=== PATIENT | female | born 1970 | race Caucasian/White ===

== ENCOUNTER 2019-05-10 12:02 | Emergency (ER) | payer OTHER, SELFPAY ==
[2019-05-10 12:04] VITALS: BP 152/86; PULSE 96; RESP 15; TEMP 36.2; O2SAT 100; BMI 20.4
--- NOTE | 2019-05-10 12:29 | EKG12_ITS ---
Test Reason : SOB Blood Pressure : / mmHG Vent. Rate : 077 BPM Atrial Rate : 077 BPM P-R Int : 158 ms QRS Dur : 084 ms QT Int : 400 ms P-R-T Axes : 067 052 064 degrees QTc Int : 452 ms Normal sinus rhythm Normal ECG Confirmed by ZOË SIMON, AIDE ([id number]), state editor RENNY DOUGLAS ([id number]) on 05/12/2019 12:31:53 PM Referred By: NENA Confirmed By:LAUREN CAMP MD
--- NOTE | 2019-05-10 12:29 | RAD_ITS ---
STUDY: X-RAY CHEST REASON FOR EXAM: Female, 48 years old. One-month history of shortness of breath and weakness. TECHNIQUE: Single AP portable view of the chest. COMPARISON: None. FINDINGS: The lungs are clear and expanded. There is no demonstrated pleural abnormality. Normal size heart. Normal mediastinum and tracy. Normal visualized pulmonary arteries. Normal visualized aortic arch and descending thoracic aorta. There is a levoscoliosis of the thoracic spine. Mild degree of degenerative changes. Normal visualized ribs, clavicles, and shoulders. There is no demonstrated abnormality of the visualized soft tissue structures of the upper abdomen. RAD/Chest 1 View (Portable) IMPRESSION: No acute abnormality is seen. Electronically Signed: Spike Ponce, at 12:54 EST , Service support ,
--- NOTE | 2019-05-10 12:30 | ED.VISSUMM ---
- ER Visit Summary Date of Service: 05/10/19 Chief Complaint: Mouth sores and shortness of breath History of Present Illness: The patient is a 48 F no significant past medical history. Patient states for the last 18+ months she has had intermittent mouth sores and shortness of breath. She states when she coughs up sputum that she sees [facility] with a microscope that she has at home. She denies any hemoptysis. She denies any melena. Says she has been seen by datapower developer without any diagnosis. She is been seen in multiple hospitals in the emergency department and the tests are always negative. She denies any chest pain. She denies any fever or chills. She has no reported past medical history. She has had a prior hysterectomy. Physical Examination: Middle-aged female no acute distress. Vital signs are stable and afebrile. Her blood pressure 132/86. Pulse ox on percent room air no signs of hypoxia. H EENT exam unremarkable. Her tongue is moist. She has hypertrophied taste buds but there is no lesions. There is no sores. There is no discoloration. Posterior pharynx normal. Neck nontender. No lymphadenopathy. Lungs clear to auscultation. Heart regular rhythm no murmur. Abdomen is soft and nontender. Normal bowel sounds no peritoneal signs. Patient is moving all 4 extremities. Neurovascular intact. Calves are nontender without edema or cords. Neurologically she is awake and alert with no focal motor deficits. Test Results: X-ray portable one view shows no acute abnormality read both by myself and the radiologist. Normal cardiac silhouette. Normal lung thakkar. EKG sinus rhythm rate of 77 no acute signs of MN or ischemia. CBC normal white count of 6. Hemoglobin 13. Chemistries unremarkable potassium slightly low at 3.2. Emergency Department Course and Treatment: Plan the patient she is a normal exam. She wants me to run test. I explained to her I could do some testing but not the likelihood of this to give us a specific diagnosis with a normal exam is unlikely. She requested an MRI of her abdomen I explained her that she has no abdominal pain and I could not get that today through the emergency department. Repeat exam unchanged at 1325 PM. She will need outpatient follow-up. Treatment Plan: Follow-up with a local primary care physician. Disposition: Discharge Impression: Multiple somatic complaints uncertain etiology This note was generated with [employer] dictation software. It may contain incorrect words, spelling, and punctuation that were not noted in review of the chart prior to signing ED Disposition - Plan for ED Patient: Referrals: NOT,DEFINED [NON-STAFF] -
--- NOTE | 2019-05-10 12:43 | NURSING ---
NO OLD EKGS
[2019-05-10 13:03] LABS: Absolute Lymphocyte Count 2.63 X10^3/uL (0.83-4.51); Absolute Neutrophil Count 3.6 X10^3/uL (2.0-7.7); Basophil# 0.03 X10^3/uL; Basophil% 0.4 % (0-1); Eosinophil# 0.05 X10^3/uL; Eosinophils% 0.7 % (0-5); Hematocrit 40.8 % (37-47); Hemoglobin 13.7 g/dL (12.0-15.0); Lymphocyte # 2.63 X10^3/ul (4.0); Lymphocyte % 38.8 % (19-41); Mean Corp Hgb Conc 33.6 g/dL (32-36); Mean Corpuscular Hgb 31.5 pg (27.0-32.0); Mean Corpuscular Volume 93.8 fL (81-99); Mean Platelet Vol. 10.8 fl (6.2-12.0); Monocyte# 0.47 X10^3/uL; Monocyte% 6.9 % (0-10); NRBC Flagged by Analyzer 0 % (0-5); Neutrophil # 3.58 X10^3/uL (2.7-7.7); Neutrophil % 52.9 % (47-70); Platelet Count 291 K/mm3 (150-450); RBC Distribution Width CV 12.1 % (11.6-14.6); RBC Distribution Width SD 42.4 fl (35.1-43.9); Red Blood Count 4.35 M/mm3 (4.2-5.4); White Blood Count 6.8 K/mm3 (4.4-11.0)
[2019-05-10 13:16] LABS: Anion Gap 6 (5-15); BUN 16 mg/dL (7-18); BUN/Creat Ratio 15.1 RATIO (10-20); Calcium,Total 9.1 mg/dL (8.5-10.1); Chloride 105 mmol/L (98-107); Creatinine, Serum 1.06 mg/dL (0.55-1.02); EST Glomerular Filtration Rate 58 mL/min (>60); Est Glom Filt Rate - Afr Amer 71 mL/min (>60); Estimated Creatinine Clearance 58.07 ml/min; Glucose 83 mg/dL (74-106); Potassium 3.2 mmol/L (3.5-5.1); Sodium Level 142 mmol/L (136-145)
--- NOTE | 2019-05-10 13:27 | ED.DEP ---
ED Disposition - Plan for ED Patient: Disposition: Home or Assisted Living Instructions: ED Dyspnea Referrals: Dmitri Huitron MD [NON-STAFF] - 1 Week Additional Instructions: Follow-up with a local doctor for further evaluation. Your lab work, EKG and chest x-ray today were unremarkable.
[2019-05-10 13:59] VITALS: BP 125/95; PULSE 80; RESP 16
== END 2019-05-10 14:00 | disposition home or self-care (01) ==
PROVIDERS: Emergency Provider Emergency Medicine
DX: R06.02 Shortness of breath (principal); K13.70 Unspecified lesions of oral mucosa; R06.00 Dyspnea, unspecified; Z72.0 Tobacco use
CPT/HCPCS: 71045; 80048; 85025; 93005; 99283; A4216